=== PATIENT | male | born 1950 | race Caucasian/White ===

== ENCOUNTER 2018-06-11 07:28 | Emergency (ER) | payer MEDICARE, OTHER ==
[2018-06-11 07:50] VITALS: BP 174/99
--- NOTE | 2018-06-11 08:01 | EDM.PDOC ---
ED HPI GENERAL MEDICAL PROBLEM - General Chief Complaint: Flank Pain Stated Complaint: Left Flank Pain; Abdominal pain Time Seen by Provider: 06/11/18 07:45 Source of Information: Reports: Patient, Family, RN, RN Notes Reviewed History Limitations: Reports: No Limitations - History of Present Illness INITIAL COMMENTS - FREE TEXT/NARRATIVE: Patient presents to the ED at [facility] complaining of LUQ/LLQ and left flank pain that started last night around 8pm. He states the pain was minimal throughout the day, but progressively got worse. He felt a little warm last night when the pain was at its worst. No chills. No N/V/D. No chest pain or SOB. Patient feels as if his bladder if full. He has not urinated much. He has a history of a kidney stone about 5-6 years ago. Onset Date: 06/10/18 Onset Time: 20:00 Duration: Constant Location: Reports: Abdomen, Radiates to (left flank) Quality: Reports: Sharp, Stabbing, Throbbing Severity: Moderate Improves with: Reports: Rest Worsens with: Reports: Movement Context: Denies: Activity, Sick Contact, Trauma Associated Symptoms: Reports: No Other Symptoms Left Flank Pain Score (Numeric/FACES): 9 - Related Data Allergies Allergy/AdvReac Type Severity Reaction Status Date / Time venom-honey bee Allergy Hives Verified 06/11/18 07:38 [bee venom (honey bee)] Home Meds: Home Meds Aspirin [Shana Chewable] 81 mg PO DAILY 04/19/15 [History] Bioflav,Lemon/Vit BComp&C [Lipo-Flavonoid Plus Caplet] 4 tab PO DAILY 04/19/15 [ History] EPINEPHrine [Epipen] 0.3 mg IM ONETIME 04/19/15 [History] Fish Oil/Borage/Flax/Om3,6,9#1 [[place] 3-6-9 1,200 mg Softgel] 2 tab PO DAILY [History] Metoprolol Tartrate 50 mg PO DAILY 04/19/15 [History] Multivitamin [Multivitamins] 2 each PO DAILY 04/19/15 [History] Colestipol [Colestipol HCl] 1 gram DAILY 06/11/18 [History] Tamsulosin HCl [Flomax] 0.4 mg PO DAILY 6 Days #6 cap.er.24h 06/11/18 [Rx] Tamsulosin HCl [Flomax] 0.4 mg PO ONETIME #1 cap.er.24h 06/11/18 [Rx] Past Medical History Cardiovascular History: Reports: High Cholesterol, Hypertension Oncologic (Cancer) History: Reports: Other (See Below) Other Oncologic History: penile - Past Surgical History Other HEENT Surgeries/Procedures: lasik surgery, detached retina Cardiovascular Surgical History: Reports: Coronary Artery Stent ED ROS GENERAL - Review of Systems Review Of Systems: ROS reveals no pertinent complaints other than HPI. ED EXAM, GI/ABD - Physical Exam Exam: See Below Exam Limited By: No Limitations General Appearance: Alert, No Apparent Distress Respiratory/Chest: No Respiratory Distress, Lungs Clear, Normal Breath Sounds Cardiovascular: Normal Peripheral Pulses, Regular Rate, Rhythm GI/Abdominal Exam: Guarding, Rigid, Tender (LLQ/LUQ), Abnormal Bowel Sounds ( Hypoactive) Neurological: Alert, Oriented Skin Exam: Warm, Dry, Intact, Normal Color Course - Vital Signs Last Recorded V/S: Last Vital Signs Temp 35.5 C 06/11/18 07:28 Pulse 93 06/11/18 07:28 Resp 20 06/11/18 07:28 BP 174/99 H 06/11/18 07:28 Pulse Ox 95 06/11/18 07:28 - Orders/Labs/Meds Orders: Active Orders 24 hr Category Date Time Status Bladder Scan [RC] ONETIME Care 06/11/18 08:05 Active Abdomen Pelvis wo Cont [CT] Stat Exams 06/11/18 07:43 Taken Labs: Laboratory Tests 06/11/18 06/11/18 06/11/18 Range/Units 07:40 07:58 07:58 WBC 9.2 (4.0-10.0) x10^3/uL RBC 5.39 (4.5-6.0) x10^6/uL Hgb 17.6 D (14.0-18.0) g/dL Hct 51.4 (40.0-52.0) % MCV 95.4 H (78.0-93.0) fL MCH 32.7 H (26.0-32.0) pg MCHC 34.2 (32.0-36.0) g/dL RDW Coeff of [place] 13.9 (10.0-15.0) % Plt Count 188 (130-400) x10^3/uL Neut % (Auto) 83.2 H (50.0-80.0) % Lymph % (Auto) 9.2 L (25.0-50.0) % [place] % (Auto) 7.2 (2.0-11.0) % Eos % (Auto) 0.2 (0.0-4.0) % Baso % (Auto) 0.2 (0.2-1.2) % Sodium 140 (136-145) mmol/L Potassium 4.2 (3.5-5.1) mmol/L Chloride 106 (98-107) mmol/L Carbon Dioxide 23 (21-32) mmol/L Anion Gap 15.2 (10-20) mmol/L BUN 16 (7-18) mg/dL Creatinine 1.5 H (0.70-1.30) mg/dL Est Cr Clr Drug Dosing 51.59 mL/min Estimated GFR (MDRD) 47 Glucose 153 H (74-106) mg/dL Calcium 8.8 (8.5-10.1) mg/dL Urine Color Yellow (YELLOW) Urine Appearance Slightly cloudy H (CLEAR) Urine pH 6.5 (5.0-8.0) Ur Specific [place] 1.025 Urine Protein 30 H (NEGATIVE) mg/dL Urine Glucose (UA) Negative (NEGATIVE) mg/dL Urine Ketones Negative (NEGATIVE) mg/dL Urine Occult Blood Trace-intact H (NEGATIVE) Urine Nitrite Negative (NEGATIVE) Urine Bilirubin Negative (NEGATIVE) Urine Urobilinogen 0.2 (0.2) EU/dL Ur Leukocyte Esterase Negative (NEGATIVE) Urine RBC 0-5 (NOT SEEN) /HPF Urine WBC 0-5 (NOT SEEN) /HPF Ur Squamous Epith Cells Not seen (NEGATIVE) /HPF Urine Bacteria Few H (NEGATIVE) /HPF Urine Mucus Many H (NEGATIVE) /LPF Meds: Medications Discontinued Medications Generic Name Dose Route Start Last Admin Trade Name Matthewq PRN Reason Stop Dose Admin Fentanyl 50 mcg 06/11/18 08:02 06/11/18 08:12 Sublimaze IVPUSH 06/11/18 08:03 50 mcg ONETIME ONE Administration Sodium Chloride 1,000 mls @ 999 mls/hr 06/11/18 08:02 06/11/18 08:11 Normal Saline IV 06/11/18 09:02 999 mls/hr ONETIME ONE Administration - Radiology Interpretation Free Text/Narrative:: CT Abd/Pelvis: 6mm obstructing radiopaque distal left ureteral calculus See scanned report in EMR for detail CT Results Date: 06/11/18 CT Results Time: 08:45 Departure - Departure Time of Disposition: 09:04 Disposition: Home, Self-Care 01 Condition: Good Clinical Impression: Kidney stone on left side - Discharge Information *PRESCRIPTION DRUG MONITORING PROGRAM REVIEWED*: Not Applicable *COPY OF PRESCRIPTION DRUG MONITORING REPORT IN PATIENT BRIAN: Not Applicable Prescriptions: Tamsulosin HCl [Flomax] 0.4 mg PO DAILY 6 Days #6 cap.er.24h Instructions: Kidney Stones, Low-Purine Eating Plan Forms: ED Department Discharge Additional Instructions: 1. Stay very well hydrated and rest 2. Take narcotic pain medication sparingly 3. May use Tylenol for any pain/discomfort 4. Take medications (Flomax) for the full coarse, even if you are feeling better 5. Call Dr. Weathers's office this week with problems 6. Call us with any questions or concerns ED Communication - ED Communication Date/Time Date: 06/11/18 Time Called: 08:57 - Discussed Case With (1) Discussed Case With (1): Other ([facility]) - Problem List Review Problem List Initiated/Reviewed/Updated: Yes - My Orders Last 24 Hours: My Active Orders 06/11/18 07:43 Abdomen Pelvis wo Cont [CT] Stat 06/11/18 08:05 Bladder Scan [RC] ONETIME - Assessment/Plan Last 24 Hours: My Active Orders 06/11/18 07:43 Abdomen Pelvis wo Cont [CT] Stat 06/11/18 08:05 Bladder Scan [RC] ONETIME Assessment:: Left ureteral stone Plan: Case discussed with [facility]. Dr. Abarca, Urology. Will start pain meds and Flomax. Patient to follow up with Urology as directed.
[2018-06-11] MEDS ORDERED: Sodium Chloride 0.9% 1,000 ML IV ONE (08:02)
[2018-06-11] MEDS ORDERED: fentaNYL 100 MCG/2 ML SDV IVPUSH ONE (08:02)
[2018-06-11 08:20] LABS: ANION GAP 15.2 mmol/L (10-20)
[2018-06-11] MEDS ORDERED: Take Home: Acetaminophen/HYDROcodone 325-5 MG, 5 Tab Pack PO ONE (09:08)
[2018-06-11] MEDS ORDERED: Tamsulosin 0.4 MG Cap.ER PO ONE (09:18)
== END 2018-06-11 09:35 | disposition home or self-care (01) ==
LOC: VM.ED 07:28
DX: N20.2 Calculus of kidney with calculus of ureter (principal); I10 Essential (primary) hypertension; F17.210 Nicotine dependence, cigarettes, uncomplicated; E78.00 Pure hypercholesterolemia, unspecified; Z91.030 Bee allergy status; Z79.82 Long term (current) use of aspirin; Z79.899 Other long term (current) drug therapy
CPT/HCPCS: 51798; 74176; 80048; 81001; 85025; 96361; 96374; 99284; 99284-GF; A9270-GY; J3010; J7030